=== PATIENT | female | born 1935 | race Caucasian/White ===

== ENCOUNTER 2017-08-29 19:25 | Inpatient (IN) ==
--- NOTE | 2017-08-29 19:35 | Emergency Department Note ---
Disposition Clinical Impression: Community acquired pneumonia Qualifiers: Laterality: left Lung location: lower lobe of lung Qualified Code(s): J18.1 - Lobar pneumonia, unspecified organism Disposition: Admitted As Inpatient Condition: Good SOB HPI - General Chief Complaint: ED Shortness of Breath/Dyspnea Stated Complaint: difficulty breathing Source: patient, family, EMS Mode of arrival: EMS Limitations: no limitations Nursing Notes Reviewed: Yes Vital Signs Reviewed: Yes - History of Present Illness Patient presents to the ED via EMS with complaint of difficulty breathing since yesterday. Patient states she was diagnosed with pneumonia by her PCP a week ago during an office visit where an x-ray was performed. She is on day #7 of . She started having difficulty breathing yesterday. She has had a cough productive of yellow sputum. Denies any sore throat, rhinorrhea or sneezing. No fever or chills. No chest pain. She has home oxygen to wear as needed and did start wearing it yesterday without improvement, prompting her to call EMS today. She does have history of COPD as well as prior CT with 2 stents. On arrival oxygen saturation is 94-96% on 4 L. She is mildly tachycardic at 101 but afebrile. - Related Data Home Medications Medication Instructions Recorded Confirmed Furosemide [Lasix] 20 mg PO DAILY 09/10/16 09/10/16 Gabapentin [Neurontin] 600 mg PO TID 09/10/16 09/10/16 LORazepam [Ativan] 1 mg PO TID 09/10/16 09/10/16 Metoprolol [Lopressor] 25 mg PO BID 09/10/16 09/10/16 Omeprazole [PriLOSEC] 20 mg PO DAILY 09/10/16 09/10/16 Potassium Chloride [Klor-Con 10 meq PO DAILY 09/10/16 09/10/16 Sprinkle] Sertraline [Zoloft] 100 mg PO DAILY 09/10/16 09/10/16 Simvastatin [Zocor] 10 mg PO DAILY 09/10/16 09/10/16 Zolpidem [Ambien] 10 mg PO HS 09/10/16 09/10/16 dilTIAZem HCl [Cardizem] 120 mg PO DAILY 09/10/16 09/10/16 Allergies Allergy/AdvReac Type Severity Reaction Status Date / Time Penicillins Allergy Rash Verified 08/29/17 19:28 Sulfa (Sulfonamide Allergy Rash Verified 08/29/17 19:28 Antibiotics) Iodine contrast Allergy Hives Uncoded 08/29/17 19:28 Constitutional: Denies: fever, chills, weakness, weight change Eyes: Denies: eye pain, eye discharge, vision change ENT ED: Denies: ear pain, throat pain, dental pain, hearing loss, epistaxis, congestion, dysphagia Cardiovascular: Denies: chest pain, palpitations, dyspnea on exertion, edema, syncope Respiratory: Reports: cough, dyspnea, sputum production. Denies: wheezes Gastrointestinal: Denies: abdominal pain, nausea, vomiting, diarrhea, constipation, hematemesis, melena, hematochezia Genitourinary: Denies: dysuria, frequency, hematuria, discharge Musculoskeletal: Denies: back pain, neck pain, arthralgia, myalgia Integumentary: Denies: rash, abrasion, lesions Neurological: Denies: headache, weakness, numbness, paresthesias, confusion, abnormal gait, vertigo Psychiatric: Denies: anxiety, depression, suicidal thoughts, homicidal thoughts , auditory hallucinations, visual hallucinations Endocrine: Denies: fatigue Hematological/Lymphatic: Denies: easy bleeding, easy bruising Allergic/Immunologic: Denies: facial swelling, urticaria Past Medical History - Past Medical History Medical history: Reports: coronary artery disease, hyperlipidemia, hypertension Surgical history: Reports: cholecystectomy, coronary bypass (CABG), hysterectomy , JUANJO/BSO Psychiatric history: Reports: no psych history HARP REGULATOR history: Reports: no HARP REGULATOR history - Social History Smoking Status: Never smoker Smokeless Tobacco Status: No Alcohol use: Reports: none Drug use: Reports: none Physical Exam - General Limitations: no limitations General appearance: alert, in no apparent distress - Head Head exam: atraumatic, normocephalic, normal inspection - Eye Eye exam: Present: normal appearance, PERRL, EOMI - ENT ENT exam: normal exam, normal oropharynx, mucous membranes moist - Neck Neck exam: Present: normal inspection, full ROM, trachea midline - Chest Chest inspection: Present: normal inspection, symmetric chest wall rise. Absent : tenderness - Respiratory Respiratory exam: Absent: respiratory distress, accessory muscle use - Expanded Respiratory Exam Location: rhonchi: Left, Lower - Cardiovascular Cardiovascular exam: Present: regular rate, normal rhythm, normal heart sounds - Abdominal Exam Abdominal exam: Present: soft, Non-Tender. Absent: tenderness, distention, guarding, rebound, rigidity - Extremities Exam Extremities exam: Present: normal inspection, full ROM. Absent: tenderness, pedal edema - Back Exam Back exam: Present: normal inspection, full ROM. Absent: tenderness - Neurological Exam Neurological exam: Present: alert, oriented X3 - Psychiatric Psychiatric exam: Present: normal affect, normal mood - Skin Skin exam: Present: warm, dry, intact, normal color Course Course Narrative: Patient presents to the ED complaining of 24 hours of difficulty breathing after recent outpatient diagnosis of pneumonia being treated with oral antibiotics. She does have some rhonchi in the left mid and lower lung salas raising concern for possible persistent or worsening pneumonia. Patient is afebrile, is not in any distress and is not hypoxic. Will obtain routine labs and chest x-ray to evaluate further. - Reevaluation(s) Reevaluation #1: Laboratory studies show significant leukocytosis with left shift but lactic acid , BNP and troponin are normal. Chest x-ray shows left middle and lower lobe pneumonia. Patient does not recall where her previous pneumonia was located that she is apparently failed outpatient therapy with oral Levaquin. Will start ceftriaxone and azithromycin. Patient will require admission for further treatment with IV antibiotics and oxygen support. Discussed this recommendation with patient and her and she is agreeable. I spoke to the hospitalist on-call, Dr. Che, who has agreed to accept the patient. He did request a flu swab be done. Will start IV antibiotics and make arrangements to admit the patient. Vital Signs Temperature 98.5 F 08/29/17 19:26 Pulse Rate 101 08/29/17 19:26 Respiratory Rate 20 08/29/17 19:26 Blood Pressure 132/62 08/29/17 19:26 O2 Sat by Pulse Oximetry 94 08/29/17 19:26 Temperature 98.3 F 08/30/17 08:37 Pulse Rate 94 08/30/17 08:37 Respiratory Rate 24 08/30/17 08:37 Blood Pressure 150/64 08/30/17 08:37 O2 Sat by Pulse Oximetry 94 08/30/17 08:37 Oxygen Delivery Oxygen Delivery Room Air Shortness of Breath/Dyspnea - Differential Diagnosis Likely: acute exacerbation of chronic obstructive airways disease, congestive heart failure, pneumonia. Unlikely: pulmonary embolism, pneumothorax, arrhythmia - Medical Records Medical records reviewed: Yes I reviewed the patient's medical records. - Lab Data Lab results reviewed: Yes I reviewed the patient's lab results. Result diagrams: 08/29/17 20:01 08/29/17 20:01 Lab Results 08/29/17 08/29/17 08/29/17 Range/Units 20:01 20:01 20:01 WBC 25.3 H (4.3-11.1) K/mcL RBC 2.68 L (3.82-4.97) M/mcL Hgb 8.1 L (11.5-15.4) g/dL Hct 24.2 L (35.3-44.9) % MCV 90.3 (83.0-100.0) fL MCH 30.2 (28.0-33.3) pg MCHC 33.5 (31.6-35.5) g/dL RDW 16.8 H (11.5-14.5) % Plt Count 321 (140-400) K/mcL MPV 9.5 (9.4-12.4) fL Seg Neutrophils % 93.3 % Lymphocytes % 1.3 % Monocytes % 5.3 % Neutrophils # 23.6 H (1.6-8.9) K/mcL Lymphocytes # 0.3 L (0.6-4.6) K/mcL Monocytes # 1.3 (0.0-1.3) K/mcL Toxic Granulation Present A (Not Present) Platelet Estimate Normal (Normal) Large Platelets Present A (Not Present) Polychromasia 1+ A (Not Present) Hypochromasia Present A (Not Present) Anisocytosis 1+ A (Not Present) Sodium 130 L (136-145) mEq/L Potassium 3.9 (3.5-5.1) mEq/L Chloride 96 L (98-107) mEq/L Carbon Dioxide 24 (23-29) mEq/L BUN 15 (8-23) mg/dL Creatinine 1.09 (0.60-1.20) mg/dL Est GFR ( Amer) 58 L (> 60) Est GFR (Non-Af Amer) 48 L (> 60) BUN/Creatinine Ratio 14 (6-26) Glucose 118 H (70-105) mg/dL Calculated Osmolality 272 L (280-300) Lactic Acid 0.7 (0.5-2.2) mmol/L Calcium 9.3 (8.6-10.3) mg/dL Troponin I (< 0.04) ng/mL B-Natriuretic Peptide (Less than 100) pg/mL 08/29/17 08/29/17 Range/Units 20:01 20:01 WBC (4.3-11.1) K/mcL RBC (3.82-4.97) M/mcL Hgb (11.5-15.4) g/dL Hct (35.3-44.9) % MCV (83.0-100.0) fL MCH (28.0-33.3) pg MCHC (31.6-35.5) g/dL RDW (11.5-14.5) % Plt Count (140-400) K/mcL MPV (9.4-12.4) fL Seg Neutrophils % % Lymphocytes % % Monocytes % % Neutrophils # (1.6-8.9) K/mcL Lymphocytes # (0.6-4.6) K/mcL Monocytes # (0.0-1.3) K/mcL Toxic Granulation (Not Present) Platelet Estimate (Normal) Large Platelets (Not Present) Polychromasia (Not Present) Hypochromasia (Not Present) Anisocytosis (Not Present) Sodium (136-145) mEq/L Potassium (3.5-5.1) mEq/L Chloride (98-107) mEq/L Carbon Dioxide (23-29) mEq/L BUN (8-23) mg/dL Creatinine (0.60-1.20) mg/dL Est GFR ( Amer) (> 60) Est GFR (Non-Af Amer) (> 60) BUN/Creatinine Ratio (6-26) Glucose (70-105) mg/dL Calculated Osmolality (280-300) Lactic Acid (0.5-2.2) mmol/L Calcium (8.6-10.3) mg/dL Troponin I < 0.03 (< 0.04) ng/mL B-Natriuretic Peptide 212 H (Less than 100) pg/mL - Radiology Data Radiology results reviewed: Yes I reviewed the patient's radiology results. ITS Impressions Chest X-Ray 08/29/17 19:52 IMPRESSION: 1. Left-sided airspace disease most consistent with pneumonia. Radiographic follow-up to resolution is suggested. 2. Blunting of the right costophrenic angle, small effusion versus scarring. D/ / 08/29/2017 21:11:39 Davi Dietrich MD / [facility] Interpreting Provider: Davi Dietrich MD - EKG Data EKG attestation: Yes I reviewed and interpreted this EKG. EKG shows normal: Reports: sinus rhythm Rate: Reports: tachycardia Rhythm: Reports: NSR [place]/QRS: Reports: left axis deviation Interpretation: Reports: unchanged when compared to prior tracing (date) (11/05/16 )
[2017-08-29 20:07] LABS: Hematocrit 24.2 % (35.3-44.9); Hemoglobin 8.1 g/dL (11.5-15.4); Mean Corpuscular HGB Conc 33.5 g/dL (31.6-35.5); Mean Corpuscular Hemoglobin 30.2 pg (28.0-33.3); Mean Corpuscular Volume 90.3 fL (83.0-100.0); Mean Platelet Volume 9.5 fL (9.4-12.4); Platelet Count 321 K/mcL (140-400); Red Blood Count 2.68 M/mcL (3.82-4.97); Red Cell Distribution Width 16.8 % (11.5-14.5)
[2017-08-29 20:21] LABS: Calcium 9.3 mg/dL (8.6-10.3); Potassium 3.9 mEq/L (3.5-5.1)
[2017-08-29 20:38] LABS: Anisocytosis 1+ (Not Present); Lymphocytes # 0.3 K/mcL (0.6-4.6); Lymphocytes % 1.3 %; Monocytes # 1.3 K/mcL (0.0-1.3); Monocytes % 5.3 %; Neutrophils # 23.6 K/mcL (1.6-8.9); Polychromasia 1+ (Not Present); Segmented Neutrophils % 93.3 %
[2017-08-29 20:39] LABS: Hypochromasia Present (Not Present); Large Platelets Present (Not Present); Toxic Granulation Present (Not Present)
[2017-08-29 20:40] LABS: Platelet Estimate Normal (Normal)
[2017-08-29] MEDS ORDERED: cefTRIAXone 1,000 MG in Water for inj. (sterile) 10 ML IVP ONE (21:54)
[2017-08-29] MEDS ORDERED: Azithromycin 500 MG in D5% in Water 250 ML IVPB ONE (21:54)
[2017-08-29] MEDS ORDERED: Naloxone 0.4 MG/ML INJ IVP PRN (22:33)
[2017-08-30] MEDS ORDERED: Naloxone 0.4 MG/ML INJ IVP PRN (00:15)
[2017-08-30] MEDS ORDERED: *HR* LORazepam 1 MG TABLET PO ONE (00:47)
--- NOTE | 2017-08-30 11:10 | Internal Med History&Physical ---
Date of Encounter: 08/30/17 Time of Encounter: 10:40 Assessment and Plan (1) Community acquired pneumonia Current visit: Yes Status: Acute She was given Rocephin and Zithromax in the emergency room. These will be continued with lactobacillus. Chest CT will be done to further evaluate pneumonia and weight loss. Qualifiers: Laterality: left Lung location: lower lobe of lung Qualified Code(s): J18.1 - Lobar pneumonia, unspecified organism (2) Anemia Current visit: Yes Status: Acute Will order anemia testing Qualifiers: Anemia type: unspecified type Qualified Code(s): D64.9 - Anemia, unspecified (3) Azotemia Current visit: Yes Status: Acute We will hold Lasix and give IV fluids. Recheck labs in a.m. (4) Weight loss Current visit: Yes Status: Acute We will order CT of chest abdomen and pelvis and check TSH. (5) Memory loss Current visit: Yes Status: Acute Will order MMSE. Internal Medicine - H&P: HPI Chief complaint: Cough with dyspnea, anemia Admitted From: Emergency Dept Plans for Post Hospital Care: Home History of present illness: Ms. Campoverde is a 82 year old female who came to emergency room stating she had ongoing cough productive of yellow sputum and dyspnea despite having been prescribed Levaquin at a visit with her PCP approximately one week earlier. She denies hemoptysis. She was evaluated in emergency room and found to have left lung pneumonia. She had leukocytosis and significant anemia. She had left shift on WBC differential. She was admitted to [facility] for ongoing care needs. She states she is a lifelong nonsmoker. She claims she has been diagnosed with COPD although she has not had PFTs. She has oxygen at home but states she only uses it when she feels she needs it. Past Med Surg Social Fam HX - Past Medical History Medical history: coronary artery disease, hyperlipidemia, hypertension Psychiatric history: no psych history - Past Surgical History Surgical History: cholecystectomy, coronary bypass (CABG), hysterectomy, JUANJO/BSO - Social History Smoking Status: Never smoker Smokeless Tobacco Status: No Alcohol use: none Drug use: none Internal Medicine - H&P: Meds Furosemide [Lasix] 20 mg PO DAILY 09/10/16 [History] Gabapentin [Neurontin] 600 mg PO TID 09/10/16 [History] LORazepam [Ativan] 1 mg PO TID 09/10/16 [History] Metoprolol [Lopressor] 25 mg PO BID 09/10/16 [History] Omeprazole [PriLOSEC] 20 mg PO DAILY 09/10/16 [History] Potassium Chloride [Klor-Con Sprinkle] 10 meq PO DAILY 09/10/16 [History] Sertraline [Zoloft] 100 mg PO DAILY 09/10/16 [History] Simvastatin [Zocor] 10 mg PO DAILY 09/10/16 [History] Zolpidem [Ambien] 10 mg PO HS 09/10/16 [History] dilTIAZem HCl [Cardizem] 120 mg PO DAILY 09/10/16 [History] 3 Allergy/AdvReac Type Severity Reaction Status Date / Time Penicillins Allergy Rash Verified 08/29/17 19:28 Sulfa (Sulfonamide Allergy Rash Verified 08/29/17 19:28 Antibiotics) Iodine contrast Allergy Hives Uncoded 08/29/17 19:28 All Systems PM: A 10-system review of systems was performed and is negative for pertinent findings except as documented above in the HPI. Review of systems: Gen.: She states her weight has decreased from approximately 135 pounds one year ago to present weight of 121. This was unintentional. Cardiovascular: She is uncertain if she has been diagnosed with hypertension and heart failure. 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 She is uncertain of details. She denies DVT or pulmonary embolus. Respiratory: As per history of present illness GI: She has history of peptic ulcer disease but does not remember details. She has occasional GERD symptoms. She denies disorders of her liver gallbladder or exocrine pancreas : She denies hematuria or dysuria or kidney stones Neurologic: She states she has had decreasing memory in the past few months. She denies large distribution strokes or seizures. Endocrine: She denies diabetes or thyroid disease. She has hyperlipidemia. Hematology/oncology: She states she has been anemic for many years but denies known workup being done. She denies internal malignancies Psychiatric: She has anxiety and depression but denies other mental health issues Muscle skeletal: She denies arthritis, gout or other bone joint or muscle disorders. - Constitutional Vitals: Temp Pulse Resp BP Pulse Ox 98.7 F 80 17 118/55 91 08/30/17 10:16 08/30/17 10:16 08/30/17 10:16 08/30/17 10:16 08/30/17 10:16 Exam: General: She is a well-developed well-nourished female lying quietly in bed who appears in no acute distress HEENT: Head is atraumatic and normocephalic. Eyes: EOMI. There is no scrotal icterus. Mouth: Mucosa is moist. Neck: Supple and nontender. There is no thyromegaly or adenopathy noted. Heart: Regular with frequent ectopic beats. There is a 2 to 3/6 systolic murmur. S1 and S2 are preserved. Chest: She has a well-healed midsternal scar. Abdomen: Soft and nontender. No masses or guarding are noted. Extremities: There is no cyanosis edema or clubbing noted. Dorsalis pedis and posttibial pulses are 1-2 over 2 bilaterally. She has DJD changes of her hands. Neurologic: Mental status: She is talkative and a fair historian. She does not remember many details of her past history. Smile is symmetric. Forward wrinkles bilaterally. Tongue protrudes midline. EOMI. Motor: There is no pronator drift. Cerebellar: Finger to nose is intact bilaterally. Skin: Warm and dry Internal Med - H&P Results - Labs CBC & Chem 7: 08/29/17 20:01 08/29/17 20:01 - VTE Reasons for not Prescribing Prophylaxis: Treatment not Indicated - Low risk for VTE
[2017-08-30] MEDS: 0.45 % Sodium Chloride w/KCl 20 MEQ/1,000 ML MLS IVC SCH (11:58)
[2017-08-30 14:55] LABS: Thyroid Stimulating Hormone 1.404 mcIU/mL (0.340-5.600)
[2017-08-30 15:38] LABS: Bilirubin,Urine Negative (Negative); Blood,Urine Negative (Negative); Clarity,Urine Clear (Clear); Color,Urine Yellow (Yellow); Glucose,Urine (UA) Normal (Normal); Ketones,Urine Trace mg/dL (Negative); Leukocyte Esterase,Urine Negative (Negative); Nitrite,Urine Negative (Negative); Protein,Urine 30 mg/dL (Neg-Trace); Urobilinogen,Urine Normal (Normal)
[2017-08-30 15:49] LABS: Bacteria,Urine Few per hpf (None-Few); RBC,Urine 0-3 per hpf (0-3); Squamous Epithelial Cell,Urine Moderate per lpf (None-Few); WBC,Urine 0-3 per hpf (0-3)
[2017-08-30] MEDS ORDERED: ALPRAZolam 0.5 MG TABLET PO PRN (15:56)
[2017-08-30 19:07] LABS: Folate 21.8 ng/mL (3.0-16.0)
[2017-08-30 19:32] LABS: % Iron Saturation 10 % (15-50); Ferritin > 1350 ng/ml (10-120); Iron 14 mcg/dL (50-170); Transferrin 105 mg/dL (203-362)
[2017-08-30] MEDS: Lactobacillus 1 EACH CAP.SPRINK PO SCH (20:55)
[2017-08-30] MEDS ORDERED: cefTRIAXone 1,000 MG in Water for inj. (sterile) 20 ML 10 ML IVP SCH (21:00)
[2017-08-30] MEDS ORDERED: Azithromycin 500 MG in D5% in Water 250 ML IVPB SCH (22:00)
[2017-08-31] MEDS: 0.45 % Sodium Chloride w/KCl 20 MEQ/1,000 ML MLS IVC SCH ×2 (01:08→17:01)
[2017-08-31 04:05] LABS: Hematocrit 25.2 % (35.3-44.9); Hemoglobin 8.2 g/dL (11.5-15.4); Mean Corpuscular HGB Conc 32.5 g/dL (31.6-35.5); Mean Corpuscular Hemoglobin 29.4 pg (28.0-33.3); Mean Corpuscular Volume 90.3 fL (83.0-100.0); Platelet Count 336 K/mcL (140-400); Red Blood Count 2.79 M/mcL (3.82-4.97); Red Cell Distribution Width 16.9 % (11.5-14.5)
[2017-08-31 04:32] LABS: BUN/Creatinine Ratio 12 (6-26); Blood Urea Nitrogen 9 mg/dL (8-23); Calcium 9.2 mg/dL (8.6-10.3); Carbon Dioxide 22 mEq/L (23-29); Chloride 99 mEq/L (98-107); Glucose 115 mg/dL (70-105); Osmolality,Calculated 274 (280-300); Potassium 3.8 mEq/L (3.5-5.1); Sodium 132 mEq/L (136-145); eGFR For Non-African Americans > 60 (> 60)
[2017-08-31 06:29] LABS: Eosinophils # 0.5 K/mcL (0.0-0.6); Monocytes # 1.5 K/mcL (0.0-1.3); Neutrophils # 22.8 K/mcL (1.6-8.9)
[2017-08-31 06:31] LABS: Anisocytosis 1+ (Not Present); Toxic Granulation Present (Not Present)
[2017-08-31 06:32] LABS: Basophilic Stippling 1+ (Not Present); Dohle Bodies Present (Not Present); Toxic Vacuolation Present (Not Present)
[2017-08-31 06:33] LABS: Large Platelets Present (Not Present)
[2017-08-31] MEDS: Lactobacillus 1 EACH CAP.SPRINK PO SCH ×2 (08:37→21:32)
--- NOTE | 2017-08-31 10:00 | Internal Med Progress Note ---
Date of Encounter: 08/31/17 Time of Encounter: 09:50 - Assessment and plan (1) Community acquired pneumonia Current Visit: Yes Status: Acute Assessment and plan: August 31. WBC minimally changed. Will change to Levaquin and clindamycin. Qualifiers: Laterality: left Lung location: lower lobe of lung Qualified Code(s): J18.1 - Lobar pneumonia, unspecified organism (2) Anemia Current Visit: Yes Status: Acute Assessment and plan: August 31. Anemia testing shows iron 14, transferrin saturation 10%, transferrin 105, ferritin greater than 1350, B12 661, and folate 21.8. Will monitor CBC. Qualifiers: Anemia type: unspecified type Qualified Code(s): D64.9 - Anemia, unspecified (3) Azotemia Current Visit: Yes Status: Acute Assessment and plan: August 31. Resolved with BUN and creatinine being 9 and 0.73 respectively. Will continue IV fluids (4) Weight loss Current Visit: Yes Status: Acute Assessment and plan: August 31. CT scan did not show evidence of malignancy. TSH was normal. (5) Memory loss Current Visit: Yes Status: Acute Assessment and plan: August 31. MMSE is pending - Subjective Interval history: August 31. She has no new complaints. - Constitutional Vitals: Temp Pulse Resp BP Pulse Ox 97.9 F 97 16 113/58 94 08/31/17 06:42 08/31/17 06:42 08/31/17 06:42 08/31/17 06:42 08/31/17 06:42 Exam: She is resting comfortably in bed. Lungs show a few scattered rhonchi. Heart is regular without murmurs gallops or ectopics. Extremities show no edema. I reviewed her medications and lab results. Internal Medicine: Result - Labs CBC & Chem 7: 08/31/17 03:15 08/31/17 03:15 Labs: Short CBC 08/31/17 Range/Units 03:15 WBC 24.8 H (4.3-11.1) K/mcL Hgb 8.2 L (11.5-15.4) g/dL Hct 25.2 L (35.3-44.9) % Plt Count 336 (140-400) K/mcL Neutrophils # 22.8 H (1.6-8.9) K/mcL BMP 08/31/17 03:15 Sodium 132 L Potassium 3.8 Chloride 99 Carbon Dioxide 22 L BUN 9 Creatinine 0.73 Glucose 115 H Calcium 9.2 Urine 08/30/17 Range/Units 15:25 Urine Color Yellow (Yellow) Urine Clarity Clear (Clear) Urine pH 6.0 (5.0-8.0) pH Units Ur Specific [place] 1.020 (1.010-1.025) Urine Protein 30 H (Neg-Trace) mg/dL Urine Glucose (UA) Normal (Normal) mg/dL - Impressions Impressions Abdomen/Pelvis CT 08/30/17 11:04 IMPRESSION: No CT evidence of acute process within the abdomen/pelvis to explain the clinical description of weight loss and anemia. Correlate with CT chest performed same time. D/ / Brandon Fabian / Brandon Fabian Interpreting Provider: Brandon Fabian Chest CT 08/30/17 11:04 IMPRESSION: 1. Emphysema with multifocal bilateral airspace disease and bronchiectasis representing multifocal pneumonia in the correct clinical setting. The endobronchial debris may relate to mucoid plugging although indeterminate. Correlate bronchoscopy as warranted. 2. Bilateral bronchiolitis. 3. Probable biapical fibrotic changes with bronchiectasis. Recommend three month re-evaluation to maintain stability of the more wedge-shaped consolidation of left upper lobe. 4. Cardiomegaly with small indeterminate mediastinal lymph nodes. D/ / 08/30/2017 12:18:51 Eliecer Nielson MD / [facility] Interpreting Provider: Eliecer Nielson MD - VTE Reasons for not Prescribing Prophylaxis: Treatment not Indicated - Low risk for VTE Consult Discharge Plan - Plan Referrals: NONE,PCP [Primary Care Provider] - 1 week
[2017-08-31] MEDS: Clindamycin 600 MG/50 ML 600 MG/50 ML IV.SOLN IVPB SCH ×2 (12:09→21:31)
[2017-08-31] MEDS: Levofloxacin 500 MG/100 ML 500 MG/100 ML BAG IVPB SCH (13:43)
[2017-08-31] MEDS ORDERED: Benzonatate 100 MG CAPSULE PO PRN (14:00)
[2017-08-31] MEDS: Albuterol 2.5 MG/3 ML NEBULIZER IH PRN ×4 (14:28→22:32)
--- NOTE | 2017-08-31 19:24 | Electrocardiograph Report ---
[address] [address] Test Date: 2017-08-29 Pat Name: Mari Campoverde Department: [id number] Room: [facility] Gender: F Lead Caster: [id number] : [id number] Requested By: Mahsa Perales Order Number: [id number] Reading MD: Virginia Lyle Measurements Intervals [place] Rate: 100 P: 92 [place]: 164 QRS: -54 QRSD: 86 T: 54 QT: 360 QTc: 417 Interpretive Statements SINUS TACHYCARDIA WITH OCCASIONAL SUPRAVENTRICULAR PREMATURE COMPLEXES MARKED LEFT AXIS DEVIATION Electronically Signed On 08-31-2017 19:22:40 EST by Virginia Lyle
[2017-09-01 05:09] LABS: Basophils % 0.2 %; Eosinophils # 0.1 K/mcL (0.0-0.6); Eosinophils % 0.3 %; Hemoglobin 7.4 g/dL (11.5-15.4); Immature Granulocytes % 3.5 % (0-4); Lymphocytes # 0.8 K/mcL (0.6-4.6); Lymphocytes % 3.8 %; Mean Corpuscular HGB Conc 33.6 g/dL (31.6-35.5); Mean Corpuscular Hemoglobin 29.5 pg (28.0-33.3); Mean Corpuscular Volume 87.6 fL (83.0-100.0); Mean Platelet Volume 9.7 fL (9.4-12.4); Monocytes # 1.5 K/mcL (0.0-1.3); Monocytes % 7.2 %; Platelet Count 294 K/mcL (140-400); Red Blood Count 2.51 M/mcL (3.82-4.97)
[2017-09-01 05:33] LABS: BUN/Creatinine Ratio 12 (6-26); Blood Urea Nitrogen 8 mg/dL (8-23); Calcium 8.9 mg/dL (8.6-10.3); Carbon Dioxide 24 mEq/L (23-29); Chloride 101 mEq/L (98-107); Glucose 139 mg/dL (70-105); Osmolality,Calculated 275 (280-300); Potassium 3.7 mEq/L (3.5-5.1); Sodium 132 mEq/L (136-145); eGFR For Non-African Americans > 60 (> 60)
[2017-09-01] MEDS: Clindamycin 600 MG/50 ML 600 MG/50 ML IV.SOLN IVPB SCH ×3 (05:54→20:09)
[2017-09-01] MEDS: *HR* Enoxaparin 40 MG/0.4 ML SYRINGE SQ SCH (05:55)
[2017-09-01] MEDS: Albuterol 2.5 MG/3 ML NEBULIZER IH PRN ×2 (08:56→15:42)
[2017-09-01] MEDS: Levofloxacin 500 MG/100 ML 500 MG/100 ML BAG IVPB SCH (09:25)
[2017-09-01] MEDS: Lactobacillus 1 EACH CAP.SPRINK PO SCH ×2 (09:26→20:12)
--- NOTE | 2017-09-01 11:24 | Internal Med Progress Note ---
Date of Encounter: 09/01/17 Time of Encounter: 11:15 - Assessment and plan (1) Community acquired pneumonia Current Visit: Yes Status: Acute Assessment and plan: August 31. WBC minimally changed. Will change to Levaquin and clindamycin. . WBC slightly improved with less left shift. Continue present regimen. Qualifiers: Laterality: left Lung location: lower lobe of lung Qualified Code(s): J18.1 - Lobar pneumonia, unspecified organism (2) Anemia Current Visit: Yes Status: Acute Assessment and plan: August 31. Anemia testing shows iron 14, transferrin saturation 10%, transferrin 105, ferritin greater than 1350, B12 661, and folate 21.8. Will monitor CBC. September 01. Recheck CBC periodically. Qualifiers: Anemia type: unspecified type Qualified Code(s): D64.9 - Anemia, unspecified (3) Weight loss Current Visit: Yes Status: Acute Assessment and plan: August 31. CT scan did not show evidence of malignancy. TSH was normal. (4) Memory loss Current Visit: Yes Status: Acute Assessment and plan: August 31. MMSE is pending September 01. MMSE score was 14/. (5) Weakness Current Visit: Yes Status: Acute Assessment and plan: September 01. Physical therapy and occupational therapy evaluations have been ordered. She seems willing to consider discharge to [facility] for ongoing therapy after acute care stay. - Subjective Interval history: August 31. She has no new complaints. September 01. She has no new complaints. - Constitutional Vitals: Temp Pulse Resp BP Pulse Ox 98.2 F 93 18 115/63 94 09/01/17 11:09 09/01/17 11:09 09/01/17 11:09 09/01/17 11:09 09/01/17 11:09 Exam: She is resting comfortably in bed and appears in no acute distress. Her affect is bright and cheerful. She answered questions with short but appropriate answers. I reviewed her medications and lab results. Internal Medicine: Result - Labs CBC & Chem 7: 09/01/17 04:59 09/01/17 04:59 Labs: Short CBC 09/01/17 Range/Units 04:59 WBC 21.2 H (4.3-11.1) K/mcL Hgb 7.4 L (11.5-15.4) g/dL Hct 22.0 L (35.3-44.9) % Plt Count 294 (140-400) K/mcL Neutrophils # 18.0 H (1.6-8.9) K/mcL BMP 09/01/17 04:59 Sodium 132 L Potassium 3.7 Chloride 101 Carbon Dioxide 24 BUN 8 Creatinine 0.69 Glucose 139 H Calcium 8.9 - VTE Reasons for not Prescribing Prophylaxis: Treatment not Indicated - Low risk for VTE Consult Discharge Plan - Plan Referrals: NONE,PCP [Primary Care Provider] - 1 week
[2017-09-01] MEDS: 0.45 % Sodium Chloride w/KCl 20 MEQ/1,000 ML MLS IVC SCH (16:15)
[2017-09-02] MEDS: *HR* Enoxaparin 40 MG/0.4 ML SYRINGE SQ SCH (06:10)
[2017-09-02] MEDS: Clindamycin 600 MG/50 ML 600 MG/50 ML IV.SOLN IVPB SCH ×3 (06:10→18:31)
[2017-09-02] MEDS: Levofloxacin 500 MG/100 ML 500 MG/100 ML BAG IVPB SCH (08:14)
[2017-09-02] MEDS: Lactobacillus 1 EACH CAP.SPRINK PO SCH ×2 (08:14→20:44)
--- NOTE | 2017-09-02 12:47 | Internal Med Progress Note ---
Date of Encounter: 09/02/17 Time of Encounter: 12:35 - Assessment and plan (1) Community acquired pneumonia Current Visit: Yes Status: Acute Assessment and plan: August 31. WBC minimally changed. Will change to Levaquin and clindamycin. September 01. WBC slightly improved with less left shift. Continue present regimen. September 02. Continue present regimen. Recheck labs in a.m. Qualifiers: Laterality: left Lung location: lower lobe of lung Qualified Code(s): J18.1 - Lobar pneumonia, unspecified organism (2) Anemia Current Visit: Yes Status: Acute Assessment and plan: August 31. Anemia testing shows iron 14, transferrin saturation 10%, transferrin 105, ferritin greater than 1350, B12 661, and folate 21.8. Will monitor CBC. September 01. Recheck CBC periodically. September 02. Recheck labs in a.m. Qualifiers: Anemia type: unspecified type Qualified Code(s): D64.9 - Anemia, unspecified (3) Weight loss Current Visit: Yes Status: Acute Assessment and plan: August 31. CT scan did not show evidence of malignancy. TSH was normal. (4) Memory loss Current Visit: Yes Status: Acute Assessment and plan: August 31. MMSE is pending September 01. MMSE score was 14/. (5) Weakness Current Visit: Yes Status: Acute Assessment and plan: September 01. Physical therapy and occupational therapy evaluations have been ordered. She seems willing to consider discharge to [facility] for ongoing therapy after acute care stay. September 02. Awaiting insurance approval for transfer to [facility] for ongoing care needs. - Subjective Interval history: August 31. She has no new complaints. September 01. She has no new complaints. September 02. She has no new complaints. Her reports her weight loss is 25-30 pounds in the past year. He reports she has been anemic "all of her life " and that she follows with a [place] concrete bucket unloader/oncologist. - Constitutional Vitals: Temp Pulse Resp BP Pulse Ox 98.9 F 104 16 126/73 93 09/02/17 11:40 09/02/17 11:40 09/02/17 11:40 09/02/17 11:40 09/02/17 11:40 Exam: She is resting comfortably in bed appears in no acute distress. Her affect is flat and she is minimally talkative. I reviewed her medications and lab results. Internal Medicine: Result - Labs CBC & Chem 7: 09/01/17 04:59 09/01/17 04:59 - VTE Reasons for not Prescribing Prophylaxis: Treatment not Indicated - Low risk for VTE Consult Discharge Plan - Plan Referrals: NONE,PCP [Primary Care Provider] - 1 week
[2017-09-02] MEDS: 0.45 % Sodium Chloride w/KCl 20 MEQ/1,000 ML MLS IVC SCH ×2 (18:29)
[2017-09-03 00:05] VITALS: BP 134/66
[2017-09-03] MEDS: Clindamycin 600 MG/50 ML 600 MG/50 ML IV.SOLN IVPB SCH (02:39)
[2017-09-03] MEDS: *HR* Enoxaparin 40 MG/0.4 ML SYRINGE SQ SCH (06:25)
[2017-09-03 06:42] LABS: Basophils # 0.1 K/mcL (0.0-0.2); Basophils % 0.4 %; Eosinophils # 0.3 K/mcL (0.0-0.6); Eosinophils % 1.7 %; Hematocrit 23.1 % (35.3-44.9); Hemoglobin 7.8 g/dL (11.5-15.4); Immature Granulocytes % 2.2 % (0-4); Lymphocytes # 0.9 K/mcL (0.6-4.6); Lymphocytes % 5.5 %; Mean Corpuscular HGB Conc 33.8 g/dL (31.6-35.5); Mean Corpuscular Hemoglobin 29.8 pg (28.0-33.3); Mean Corpuscular Volume 88.2 fL (83.0-100.0); Mean Platelet Volume 9.4 fL (9.4-12.4); Monocytes % 7.4 %; Neutrophils # 12.8 K/mcL (1.6-8.9); Platelet Count 281 K/mcL (140-400); Red Blood Count 2.62 M/mcL (3.82-4.97); Red Cell Distribution Width 17.4 % (11.5-14.5); Segmented Neutrophils % 82.8 %
[2017-09-03 06:48] LABS: BUN/Creatinine Ratio 15 (6-26); Blood Urea Nitrogen 9 mg/dL (8-23); Carbon Dioxide 22 mEq/L (23-29); Chloride 102 mEq/L (98-107); Glucose 87 mg/dL (70-105); Osmolality,Calculated 276 (280-300); Sodium 134 mEq/L (136-145); eGFR For Non-African Americans > 60 (> 60)
[2017-09-03 07:04] LABS: Monocytes # 1.2 K/mcL (0.0-1.3)
[2017-09-03] MEDS: Levofloxacin 500 MG/100 ML 500 MG/100 ML BAG IVPB SCH (08:12)
[2017-09-03] MEDS: Lactobacillus 1 EACH CAP.SPRINK PO SCH (08:12)
--- NOTE | 2017-09-03 11:29 | Discharge Summary ---
Date of Encounter: 09/03/17 Time of Encounter: 11:00 - Discharge Diagnosis (1) Community acquired pneumonia Priority: Primary Status: Acute Qualifiers: Laterality: left Lung location: lower lobe of lung Qualified Code(s): J18.1 - Lobar pneumonia, unspecified organism (2) Anemia Priority: Secondary Status: Acute Qualifiers: Anemia type: unspecified type Qualified Code(s): D64.9 - Anemia, unspecified (3) Weight loss Priority: Secondary Status: Acute (4) Weakness Priority: Secondary Status: Acute (5) Dementia Priority: Secondary Status: Chronic Qualifiers: Dementia type: unspecified type Dementia behavioral disturbance: without behavioral disturbance Qualified Code(s): F03.90 - Unspecified dementia without behavioral disturbance - Discharge Medications Prescriptions: Clindamycin HCl 300 mg PO Q8H 7 Days capsule levoFLOXacin [Levaquin] 500 mg PO DAILY 7 Days tablet Home Medications: Sertraline [Zoloft] 100 mg PO DAILY 09/10/16 [History] Zolpidem [Ambien] 10 mg PO HS 09/10/16 [History] Benzonatate [Tessalon] 100 mg PO TID PRN capsule 09/03/17 [Rx] Clindamycin HCl 300 mg PO Q8H 7 Days capsule 09/03/17 [Rx] Lactobacillus [Culturelle] 1 each PO BID 7 Days cap.sprink 09/03/17 [Rx] Mirtazapine [Remeron] 7.5 mg PO HS tablet 09/03/17 [Rx] levoFLOXacin [Levaquin] 500 mg PO DAILY 7 Days tablet 09/03/17 [Rx] Allergies/Adverse Reactions: 3 Allergy/AdvReac Type Severity Reaction Status Date / Time Penicillins Allergy Rash Verified 08/29/17 19:28 Sulfa (Sulfonamide Allergy Rash Verified 08/29/17 19:28 Antibiotics) Iodine contrast Allergy Hives Uncoded 08/29/17 19:28 Date of admission: 08/31/17 12:26 Primary care physician: Rodrigo Franco D.O. Consults: 09/01/17 08:48 Consult to Physical Therapy [CONS] Routine Comment: Evaluate, develop and implement POC Reason for Consult: Evaluate, develop and implement POC 09/01/17 08:49 Consult to Occupational Therapy [CONS] Routine Comment: Evaluate, develop and implement POC Reason for Consult: Evaluate, develop and implement POC - Patient Status Disposition: Transfer SNF Condition: Good Functional capacity at discharge: uses cane/walker - Discharge Instructions Forms: ED Satisfaction Letter - Diet and Activity Activity: as per physical therapy Diet: regular diet Hospital course: Ms. Campoverde is a 82 year old female who came to emergency room stating she had ongoing cough productive of yellow sputum and dyspnea despite having been prescribed Levaquin at a visit with her PCP approximately one week earlier. She denies hemoptysis. She was evaluated in emergency room and found to have left lung pneumonia. She had leukocytosis and significant anemia. She had left shift on WBC differential. She was admitted to [facility] for ongoing care needs. Initial orders were written by the emergency room physician. I saw her on August 30 and performed the history and physical. She was started on Rocephin and Zithromax in the emergency room with lactobacillus. Chest CT was done to further evaluate pneumonia and weight loss. The chest CT showed emphysema with multifocal bilateral airspace disease and bronchiectasis. There was bilateral bronchiolitis. It was recommended a three-month repeat chest CT to monitor a wedge-shaped left upper lobe area. She had no significant improvement in her WBC with Rocephin and Zithromax on repeat labs 08/31/2017. I changed her to Levaquin and clindamycin IV. She progressed satisfactorily with WBC decreased to 15.5 K and 82.8% segs on day of discharge. She will continue with oral clindamycin and Levaquin with lactobacillus for 7 days at the [facility]. IV fluids were given and azotemia resolved with BUN and creatinine decreasing to 9 and 0.59 respectively by day of discharge with estimated GFR greater than 60. BN peptide was stable at 278 on day of discharge. Anemia testing showed iron 14, transferrin saturation 10%, transferrin 105, ferritin greater than 1350, B12 661, and folate 21.8. Her hemoglobin was stable at 7.8 on day of discharge. CBC will be monitored at the [facility]. MMSE was done with score 14/30. Her reported her weight loss was 25-30 pounds in the past year, unintentional. I explained that the chest and abdominal CT did not show pathology indicating malignancy at this time. She will be given Remeron at the [facility] and further evaluation will be done as needed. On September 03 arrangements were complete for her to be discharged to [facility] for rehabilitation therapy prior to returning to independent living. She will follow with me there. - Time Spent with Patient Total time spent providing and/or coordinating discharge services: - Constitutional Vitals: Temp Pulse Resp BP Pulse Ox 98.1 F 87 18 134/66 90 09/03/17 00:04 09/03/17 00:04 09/03/17 00:04 09/03/17 00:04 09/03/17 00:04 - VTE Reasons for not Prescribing Prophylaxis: Treatment not Indicated - Low risk for VTE
--- NOTE | 2017-09-03 11:47 | Physician Discharge Referral ---
ExtendedCare Referral Info Transfer To: [facility] Provider in Charge: Chinedu Provider in Charge after Transfer: PCP (Chinedu) - Diagnosis (1) Community acquired pneumonia Priority: Primary Status: Acute (2) Anemia Priority: Secondary Status: Acute (3) Weight loss Priority: Secondary Status: Acute (4) Weakness Priority: Secondary Status: Acute (5) Dementia Priority: Secondary Status: Chronic Prognosis: Fair Aware of Diagnosis: Patient, Family Aware of Prognosis: Patient, Family - Transfer Medications Prescriptions: Clindamycin HCl 300 mg PO Q8H 7 Days capsule levoFLOXacin [Levaquin] 500 mg PO DAILY 7 Days tablet Home Medications: Sertraline [Zoloft] 100 mg PO DAILY 09/10/16 [History] Zolpidem [Ambien] 10 mg PO HS 09/10/16 [History] Benzonatate [Tessalon] 100 mg PO TID PRN capsule 09/03/17 [Rx] Clindamycin HCl 300 mg PO Q8H 7 Days capsule 09/03/17 [Rx] Lactobacillus [Culturelle] 1 each PO BID 7 Days cap.sprink 09/03/17 [Rx] Mirtazapine [Remeron] 7.5 mg PO HS tablet 09/03/17 [Rx] levoFLOXacin [Levaquin] 500 mg PO DAILY 7 Days tablet 09/03/17 [Rx] Allergies/Adverse Reactions: 3 Allergy/AdvReac Type Severity Reaction Status Date / Time Penicillins Allergy Rash Verified 08/29/17 19:28 Sulfa (Sulfonamide Allergy Rash Verified 08/29/17 19:28 Antibiotics) Iodine contrast Allergy Hives Uncoded 08/29/17 19:28 - Respiratory Orders Smoking Cessation: Smoking cessation has been advised. For more information, call the [place] Tobacco Quit Line at 2-484-AZZB-NOW. - Rehabiliation Orders Rehab Potential: Fair Rehab Orders: Evaluation for Physical Therapy, Evaluation for Occupational Therapy - Diet Orders Regular CERTIFICATION: I certify that the transfer of the above named patient to an Extended Care Facility is necessary for the continuing treatment of the diagnosis listed. The above information is true and accurate reflection of patient's current condition. Confidential - Redisclosure prohibited without a patient's written consent.
[2017-09-03] MEDS ORDERED: Mirtazapine 15 MG TABLET PO SCH (21:00)
== END 2017-09-03 13:50 | DRG 194 ==
LOC: EMEROOPIK 19:25 → INPPIK 19:25
PROVIDERS: ADMIT Internal Medicine; ATTEND Internal Medicine